=== PATIENT | male | born 1990 | race Caucasian/White ===

== ENCOUNTER 2017-06-12 13:55 | Inpatient (IN) | payer MEDICAID, OTHER ==
[~2017-06-12] VITALS: Ht 172.7 cm; Wt 69.9 kg
[~2017-06-12 13:55] MED LIST: ARIP5TAB8 PO; BACL10TA PO; CLOT15CR71 TP; LAMO25 PO; SERT50TA12 PO; TIZA4TAB4 PO; VENL25TA47 PO
[2017-06-12] MEDS ORDERED: ZOLPIDEM TARTRATE 10 MG TABLET PO PRN (14:00)
[2017-06-12] MEDS ORDERED: LORazepam 2 MG TABLET PO PRN (14:00)
[2017-06-12] MEDS ORDERED: HALOPERIDOL 5 MG TABLET PO PRN (14:00)
[2017-06-12 17:33] VITALS: BP 134/82
[2017-06-12] MEDS: LamoTRIgine 25 MG TABLET PO SCH (21:49)
[2017-06-13 08:30] VITALS: BP 138/88
[2017-06-13] MEDS ORDERED: BACITRACIN 28.4 GM OINTMENT TP PRN (09:00)
[2017-06-13] MEDS ORDERED: LOPERAMIDE HCL 2 MG CAPSULE PO PRN (09:00)
[2017-06-13] MEDS ORDERED: BENZOCAINE/MENTHOL LOZENGE MM PRN (09:00)
[2017-06-13] MEDS ORDERED: ACETAMINOPHEN 325 MG TABLET PO PRN (09:00)
[2017-06-13] MEDS ORDERED: PETROLATUM,WHITE 71 GM JELLY TP PRN (09:00)
[2017-06-13] MEDS ORDERED: MAG HYDROX/AL HYDROX/SIMETH ES 30 ML SUSPENSION UDCUP PO PRN (09:00)
[2017-06-13] MEDS ORDERED: ONDANSETRON HCL 4 MG TABLET PO PRN (09:00)
[2017-06-13] MEDS ORDERED: MAGNESIUM HYDROXIDE SUSPENSION 30 ML UDCUP PO PRN (09:00)
[2017-06-13] MEDS ORDERED: ALBUTEROL SULFATE HFA 90 MCG/PUFF 8 GM INHALER IH PRN (09:00)
[2017-06-13] MEDS ORDERED: CloNIDine HCL 0.1 MG TABLET PO PRN (09:00)
[2017-06-13] MEDS ORDERED: IBUPROFEN 600 MG TABLET PO PRN (09:00)
[2017-06-13] MEDS: LamoTRIgine 25 MG TABLET PO SCH ×2 (09:40→16:31)
[2017-06-13] MEDS ORDERED: LAMO25TA66 GT (15:52)
== END 2017-06-13 17:42 | disposition home or self-care (01) | DRG 753 ==
LOC: 3EI 14:41
PROVIDERS: ADMIT Psychiatry & Neurology Psychiatry; ATTEND Psychiatry & Neurology Psychiatry
DX: F31.9 Bipolar disorder, unspecified (principal); R45.851 Suicidal ideations; G80.9 Cerebral palsy, unspecified; G47.00 Insomnia, unspecified; F41.9 Anxiety disorder, unspecified; Z56.0 Unemployment, unspecified; Z91.040 Latex allergy status